=== PATIENT | male | born 1965 ===

== ENCOUNTER → 2025-01-18 16:54 | Outpatient (REF) | payer OTHER, SELFPAY | LOC: RAD 16:54 | PROVIDERS: ATTENDING PHYSICIAN Nurse Practitioner Family | DX: R14.0 Abdominal distension (gaseous) (principal); K92.1 Melena; R10.9 Unspecified abdominal pain; K64.4 Residual hemorrhoidal skin tags; M54.50 Low back pain, unspecified | CPT/HCPCS: 72110 ==

== ENCOUNTER → 2025-01-21 16:49 | Outpatient (REF) | payer OTHER, SELFPAY | LOC: RAD 16:49 | PROVIDERS: ATTENDING PHYSICIAN Nurse Practitioner Family | DX: R14.0 Abdominal distension (gaseous) (principal); K92.1 Melena; R10.9 Unspecified abdominal pain; K64.4 Residual hemorrhoidal skin tags; M54.50 Low back pain, unspecified | CPT/HCPCS: 74177; Q9967 ==